=== PATIENT | female | born 1965 | race Caucasian/White ===

== ENCOUNTER → 2018-10-26 | Outpatient (CLI) | payer OTHER | END | disposition home or self-care (01) | LOC: ROC 10-19 14:54 | PROVIDERS: ATTEND Radiology Radiation Oncology | DX: C79.31 Secondary malignant neoplasm of brain (principal); C50.919 Malignant neoplasm of unspecified site of unspecified female breast; C78.7 Secondary malignant neoplasm of liver and intrahepatic bile duct | CPT/HCPCS: 99214; G0463 ==

== ENCOUNTER 2018-11-07 13:42 | Outpatient (CLI) | payer OTHER | END 2018-11-07 23:59 | disposition home or self-care (01) | LOC: CFH 13:42 | PROVIDERS: ATTEND Radiology Radiation Oncology | DX: C79.31 Secondary malignant neoplasm of brain (principal); G93.6 Cerebral edema | CPT/HCPCS: 70553; A9585; J1642 ==

== ENCOUNTER → 2019-03-01 | Outpatient (CLI) | payer OTHER ==
[~2019-03-01] MED LIST: GADOTERATE 2.5 MMOL/5 ML VIAL ONE
== END | disposition home or self-care (01) ==
LOC: CFH 08:52
PROVIDERS: ATTEND Radiology Radiation Oncology
DX: C79.31 Secondary malignant neoplasm of brain (principal)
CPT/HCPCS: 70553; A9575

== ENCOUNTER → 2019-03-02 | Outpatient (CLI) | payer OTHER | END | disposition home or self-care (01) | LOC: ROC 07:41 | PROVIDERS: ATTEND Radiology Radiation Oncology | DX: C79.31 Secondary malignant neoplasm of brain (principal); H53.2 Diplopia; G47.00 Insomnia, unspecified; R41.3 Other amnesia | CPT/HCPCS: 99213; G0463 ==

== ENCOUNTER → 2019-05-01 | Outpatient (CLI) | payer OTHER ==
[~2019-05-01] MED LIST changes: +GADOTERATE 10 MMOL/20 ML SYR ONE; -GADOTERATE 2.5 MMOL/5 ML VIAL ONE
== END | disposition home or self-care (01) ==
LOC: CFH 09:00
PROVIDERS: ATTEND Radiology Radiation Oncology
DX: Z08 Encounter for follow-up examination after completed treatment for malignant neoplasm (principal); Z85.841 Personal history of malignant neoplasm of brain
CPT/HCPCS: 70553; A9575

== ENCOUNTER → 2019-05-03 | Outpatient (CLI) | payer OTHER | END | disposition home or self-care (01) | LOC: ROC 03-02 07:43 | PROVIDERS: ATTEND Radiology Radiation Oncology | DX: C78.7 Secondary malignant neoplasm of liver and intrahepatic bile duct (principal); C79.81 Secondary malignant neoplasm of breast | CPT/HCPCS: 99213; G0463 ==

== ENCOUNTER → 2019-06-30 | Outpatient (CLI) | payer OTHER ==
[~2019-06-30] MED LIST changes: -GADOTERATE 10 MMOL/20 ML SYR ONE; +GADOTERATE 7.5 MMOL/15 ML SYR ONE
== END | disposition home or self-care (01) ==
LOC: CFH 12:49
PROVIDERS: ATTEND Radiology Radiation Oncology
DX: C79.31 Secondary malignant neoplasm of brain (principal); G93.89 Other specified disorders of brain
CPT/HCPCS: 70553; A9575

== ENCOUNTER → 2019-08-10 | Outpatient (CLI) | payer OTHER | END | disposition home or self-care (01) | LOC: CFH 12:44 → EDSTATUS 08-28 10:00 | PROVIDERS: ATTEND Radiology Radiation Oncology | DX: C79.31 Secondary malignant neoplasm of brain (principal); C50.919 Malignant neoplasm of unspecified site of unspecified female breast; G93.6 Cerebral edema | CPT/HCPCS: 70553; A9575 ==

== ENCOUNTER → 2019-10-24 | Outpatient (CLI) | payer OTHER | END | disposition home or self-care (01) | LOC: CFH 11:43 | PROVIDERS: ATTEND Radiology Radiation Oncology | DX: C79.31 Secondary malignant neoplasm of brain (principal) | CPT/HCPCS: 70553; A9575 ==

== ENCOUNTER 2019-10-27 07:28 | Outpatient (CLI) | payer OTHER | END 2019-10-27 23:59 | disposition home or self-care (01) | LOC: ROC 07:28 | PROVIDERS: ATTEND Radiology Radiation Oncology | DX: C50.912 Malignant neoplasm of unspecified site of left female breast (principal); C79.51 Secondary malignant neoplasm of bone | CPT/HCPCS: 99213; G0463 ==

== ENCOUNTER → 2019-11-17 | Outpatient (CLI) | payer OTHER ==
[~2019-11-17] MED LIST changes: -GADOTERATE 7.5 MMOL/15 ML SYR ONE; +OMNIPAQUE 350 MG/ML, 100ML BOTTLE ONE
== END | disposition home or self-care (01) ==
LOC: CFH 11:09
PROVIDERS: ATTEND Specialist
DX: C50.312 Malignant neoplasm of lower-inner quadrant of left female breast (principal); J84.10 Pulmonary fibrosis, unspecified; K76.0 Fatty (change of) liver, not elsewhere classified; M89.9 Disorder of bone, unspecified
CPT/HCPCS: 71260; 74160; Q9967

== ENCOUNTER → 2019-12-27 | Outpatient (CLI) | payer OTHER ==
[~2019-12-27] MED LIST changes: +GADOTERATE 7.5 MMOL/15 ML SYR ONE; -OMNIPAQUE 350 MG/ML, 100ML BOTTLE ONE
== END | disposition home or self-care (01) ==
LOC: CFH 09:01
PROVIDERS: ATTEND Radiology Radiation Oncology
DX: C79.31 Secondary malignant neoplasm of brain (principal); R22.0 Localized swelling, mass and lump, head
CPT/HCPCS: 70553; A9575

== ENCOUNTER → 2020-01-03 | Outpatient (CLI) | payer OTHER | END | disposition home or self-care (01) | LOC: ROC 07:05 | PROVIDERS: ATTEND Radiology Radiation Oncology | DX: C79.31 Secondary malignant neoplasm of brain (principal); C50.312 Malignant neoplasm of lower-inner quadrant of left female breast | CPT/HCPCS: 99213; G0463 ==

== ENCOUNTER → 2020-02-07 | Outpatient (CLI) | payer OTHER | END | disposition home or self-care (01) | LOC: ROC 07:27 | PROVIDERS: ATTEND Radiology Radiation Oncology | DX: C79.31 Secondary malignant neoplasm of brain (principal); C50.312 Malignant neoplasm of lower-inner quadrant of left female breast; C79.51 Secondary malignant neoplasm of bone | CPT/HCPCS: 99213; G0463 ==

== ENCOUNTER → 2020-04-24 | Outpatient (CLI) | payer OTHER | END | disposition home or self-care (01) | LOC: ROC 12:50 | PROVIDERS: ATTEND Radiology Radiation Oncology | DX: C79.31 Secondary malignant neoplasm of brain (principal); C50.312 Malignant neoplasm of lower-inner quadrant of left female breast; C79.51 Secondary malignant neoplasm of bone | CPT/HCPCS: 99213; G0463 ==

== ENCOUNTER → 2020-05-22 | Outpatient (CLI) | payer OTHER | END | disposition home or self-care (01) | LOC: CFH 13:04 | PROVIDERS: ATTEND Radiology Radiation Oncology | DX: C79.31 Secondary malignant neoplasm of brain (principal) | CPT/HCPCS: 70553; A9575 ==

== ENCOUNTER → 2020-05-23 | Outpatient (CLI) | payer OTHER ==
[~2020-05-23] MED LIST changes: +DEXAMETHASONE 4 MG TABLET ONE; -GADOTERATE 7.5 MMOL/15 ML SYR ONE
== END | disposition home or self-care (01) ==
LOC: ROC 07:50
PROVIDERS: ATTEND Radiology Radiation Oncology
DX: C79.31 Secondary malignant neoplasm of brain (principal); C79.51 Secondary malignant neoplasm of bone; C50.312 Malignant neoplasm of lower-inner quadrant of left female breast
CPT/HCPCS: 99213; G0463

== ENCOUNTER → 2020-07-03 | Outpatient (CLI) | payer OTHER ==
[~2020-07-03] MED LIST changes: -DEXAMETHASONE 4 MG TABLET ONE; +GADOTERATE 7.5 MMOL/15ML SYR ONE
== END | disposition home or self-care (01) ==
LOC: CFH 10:30
PROVIDERS: ATTEND Radiology Radiation Oncology
DX: C79.31 Secondary malignant neoplasm of brain (principal); G93.89 Other specified disorders of brain
CPT/HCPCS: 70553; A9575

== ENCOUNTER 2020-07-05 07:52 | Outpatient (CLI) | payer OTHER | END 2020-07-05 23:59 | disposition home or self-care (01) | LOC: ROC 07:52 | PROVIDERS: ATTEND Radiology Radiation Oncology | DX: C79.31 Secondary malignant neoplasm of brain (principal); C50.312 Malignant neoplasm of lower-inner quadrant of left female breast; C79.51 Secondary malignant neoplasm of bone; C78.7 Secondary malignant neoplasm of liver and intrahepatic bile duct | CPT/HCPCS: 99213; G0463 ==

== ENCOUNTER → 2020-08-21 | Outpatient (CLI) | payer OTHER | END | disposition home or self-care (01) | LOC: CFH 12:49 | PROVIDERS: ATTEND Specialist | DX: C50.312 Malignant neoplasm of lower-inner quadrant of left female breast (principal); R42 Dizziness and giddiness; G93.89 Other specified disorders of brain | CPT/HCPCS: 70553; A9575 ==

== ENCOUNTER 2020-08-23 08:01 | Outpatient (CLI) | payer OTHER | END 2020-08-23 23:59 | disposition home or self-care (01) | LOC: ROC 08:01 | PROVIDERS: ATTEND Radiology Radiation Oncology | DX: Z08 Encounter for follow-up examination after completed treatment for malignant neoplasm (principal); Z85.841 Personal history of malignant neoplasm of brain; R42 Dizziness and giddiness; Z85.3 Personal history of malignant neoplasm of breast; Z85.830 Personal history of malignant neoplasm of bone | CPT/HCPCS: 99213; G0463 ==

== ENCOUNTER 2020-10-24 16:01 | Inpatient (IN) | payer OTHER ==
[~2020-10-24] VITALS: Ht 160 cm; Wt 63.5 kg
--- NOTE | 2020-10-24 17:02 | NUR ---
THIS IS A 55 YO F W/ C/O NAUSEA, INCREASED WEAKNESS AND FATIGUE S/P NEW CHEMO TREATMENT X4 WEEKS. PT HAS HX OF BREAST CANCER W/ METASTASIS TO BRAIN. PT SLEEPING ON GURNEY W/ CALL LIGHT IN REACH AND SIDE RAILS UPX2. FAMILY AT BEDSIDE. CONNECTED TO ALL MONITORING. RESP EVEN AND UNLABORED, RITAN. AWAITING ED EVAL.
[2020-10-24 17:44] LABS: MEAN CORPUSCULAR HEMOGLOBIN 27.8 pg (27.0-34.8); MEAN CORPUSCULAR HGB CONC 33.5 g/dL (32.4-35.8); MEAN PLATELET VOLUME 6.7 fL (7.4-10.4); PLATELET COUNT 166 x10^3/uL (130-400); RED BLOOD COUNT 4.75 x10^6/uL (3.82-5.3)
[2020-10-24 17:53] LABS: INTERNATIONAL NORMALIZED RATIO 1.33 (0.93-1.1)
[2020-10-24 17:56] LABS: ALANINE AMINOTRANSFERASE 42 U/L (12-78); ALBUMIN 2.8 g/dL (3.4-5.0); ANION GAP 4 mmol/L (5-15); BILIRUBIN, DIRECT 0.3 mg/dL (0.1-0.2); CALCIUM 7.7 mg/dL (8.5-10.1); CHLORIDE 102 mmol/L (98-107)
[2020-10-24 18:00] LABS: ALKALINE PHOSPHATASE 65 U/L (45-117); BILIRUBIN,TOTAL 1.3 mg/dL (0.2-1.0); TROPONIN I < 0.015 ng/mL (0.000-0.045)
[2020-10-24] MEDS ORDERED: SODIUM CHLORIDE 0.9% 1,000ML IVBOLUS ONE (18:00)
--- NOTE | 2020-10-24 18:06 | NUR ---
PT TO CT.
[2020-10-24 18:12] LABS: <PLATELET ESTIMATE> ADEQUATE; BAND#(MANUAL) 0.46 x10^3/uL; BANDS%(MANUAL) 17 % (0-7); LYMPH#(MANUAL) 0.54 x10^3/uL (1-3.4); LYMPHS% (MANUAL) 20 % (22-44); MONOS#(MANUAL) 0.19 x10^3/uL (0.3-2.7); MONOS% (MANUAL) 7 % (2-9); SEG#(MANUAL) 1.51 x10^3/uL (1.8-6.8); SEGS% (MANUAL) 56 % (42-75); STOMATOCYTES 1+
[2020-10-24 18:13] LABS: <PLT MORPHOLOGY> NORMAL PLT MORPH
[2020-10-24] MEDS ORDERED: OMNIPAQUE 350 MG/ML, 100ML BOTTLE ONE (18:30)
--- NOTE | 2020-10-24 18:58 | NUR ---
PT TRANSFERED TO BEDSIDE COMMODE W/ ASSISTANCE FROM SPOUSE. PT NOT COOPERATING W/ CLEAN CATH URINE.
--- NOTE | 2020-10-24 19:01 | NUR ---
Report from Diane ZAMORA
[2020-10-24 19:09] LABS: MICROSCOPIC AUTO
[2020-10-24] MEDS ORDERED: CALCIUM GLUCONATE 4.6 MEQ/10 ML ONE (19:25)
[2020-10-24] MEDS ORDERED: CEFEPIME 1 GM in DEXTROSE 5% 50 ML IV ONE (19:30)
[2020-10-24] MEDS ORDERED: CALCIUM GLUCONATE 4.6 MEQ/10 ML IVPush ONE (19:30)
[2020-10-24] MEDS ORDERED: DEXA4VIA39 PO (19:51)
[2020-10-24] MEDS ORDERED: TEMA30CA PO (19:51)
--- NOTE | 2020-10-24 20:09 | NUR ---
Report to Javi ZAMORA
[2020-10-24] MEDS ORDERED: ONDANSETRON 2MG/ML, 2ML ONE (20:10)
[2020-10-24] MEDS ORDERED: MORPHINE SULFATE 4 MG/ML, 1ML ONE (20:11)
[2020-10-24] MEDS: MORPHINE SULFATE 4 MG/ML, 1ML IVPush PRN ×2 (20:15→22:38)
[2020-10-24 20:28] VITALS: BP 140/87
[2020-10-24] MEDS ORDERED: ONDANSETRON 2MG/ML, 2ML IVPush ONE (20:30)
[2020-10-24] MEDS ORDERED: PANTOPRAZOLE 40 MG IV IVPush SCH (22:00)
[2020-10-24] MEDS ORDERED: ACETAMINOPHEN 325 MG TABLET PO PRN (22:00)
[2020-10-24] MEDS ORDERED: BISACODYL 10 MG SUPP PR PRN (22:00)
[2020-10-24] MEDS ORDERED: MAALOX/HYOSCYAMINE/LIDOCAINE 45 ML BTL PO ONE (22:00)
[2020-10-24] MEDS ORDERED: LIDODERM 5% PATCH TD PRN (22:00)
[2020-10-24] MEDS ORDERED: ONDANSETRON 2MG/ML, 2ML IVPush PRN (22:00)
[2020-10-24] MEDS: TEMAZEPAM 30 MG CAPSULE PO SCH (22:30)
[2020-10-24] MEDS: SODIUM CHLORIDE 0.9% 1,000 ML IV SCH (23:17)
[2020-10-25 03:54] VITALS: BP 129/78
[2020-10-25] MEDS: SODIUM CHLORIDE 0.9% 1,000 ML IV SCH ×3 (04:30→20:00)
[2020-10-25 05:35] LABS: MEAN CORPUSCULAR HEMOGLOBIN 28.4 pg (27.0-34.8); MEAN CORPUSCULAR HGB CONC 33.3 g/dL (32.4-35.8); MEAN PLATELET VOLUME 6.6 fL (7.4-10.4); PLATELET COUNT 145 x10^3/uL (130-400); RED BLOOD COUNT 4.38 x10^6/uL (3.82-5.3); RED CELL DISTRIBUTION WIDTH 15.3 % (9.6-15.2)
[2020-10-25] MEDS: PANTOPRAZOLE 40 MG IV IVPush SCH (05:47)
[2020-10-25] MEDS: CEFEPIME 1 GM in DEXTROSE 5% 50 ML IV SCH ×2 (05:47→16:36)
[2020-10-25 06:09] LABS: ANION GAP 7 mmol/L (5-15); CALCIUM 7.1 mg/dL (8.5-10.1); CHLORIDE 107 mmol/L (98-107)
[2020-10-25 06:21] LABS: BAND#(MANUAL) 0.08 x10^3/uL; BANDS%(MANUAL) 3 % (0-7); LYMPH#(MANUAL) 0.73 x10^3/uL (1-3.4); LYMPHS% (MANUAL) 28 % (22-44); METAMYELOCYTES# (MANUAL) 0.05 x10^3/uL (0-0); METAMYELOCYTES% (MANUAL) 2 % (0-1); MONOS#(MANUAL) 0.13 x10^3/uL (0.3-2.7); MONOS% (MANUAL) 5 % (2-9); SEG#(MANUAL) 1.61 x10^3/uL (1.8-6.8); SEGS% (MANUAL) 62 % (42-75)
[2020-10-25 06:22] LABS: <PLATELET ESTIMATE> ADEQUATE; <PLT MORPHOLOGY> NORMAL PLT MORPH; ANISOCYTOSIS 1+
[2020-10-25 08:45] VITALS: BP_SYST 108; BP_SYST 134; BP_DIAS 74; BP_DIAS 83
[2020-10-25] MEDS: DEXAMETHASONE 4 MG/ML, 1ML PO SCH (09:00)
[2020-10-25] MEDS ORDERED: POTASSIUM CHLORIDE 40 MEQ in SODIUM CHLORIDE 0.9% 500 ML IV ONE (12:00)
[2020-10-25] MEDS: MAALOX/HYOSCYAMINE/LIDOCAINE 45 ML BTL PO PRN (12:17)
[2020-10-25 13:56] VITALS: BP 158/91
[2020-10-25 20:04] VITALS: BP 132/74
[2020-10-25] MEDS: TEMAZEPAM 30 MG CAPSULE PO SCH (20:39)
[2020-10-26 00:07] VITALS: BP 121/73
[2020-10-26] MEDS: CEFEPIME 1 GM in DEXTROSE 5% 50 ML IV SCH ×4 (00:09→23:50)
[2020-10-26] MEDS: SODIUM CHLORIDE 0.9% 1,000 ML IV SCH ×2 (01:43→08:24)
[2020-10-26 06:33] VITALS: BP 125/81
[2020-10-26] MEDS: DEXAMETHASONE 4 MG/ML, 1ML PO SCH (07:58)
[2020-10-26] MEDS: PANTOPRAZOLE 40 MG IV IVPush SCH (07:58)
[2020-10-26] MEDS: MAALOX/HYOSCYAMINE/LIDOCAINE 45 ML BTL PO PRN ×3 (08:24→16:04)
[2020-10-26 08:50] LABS: MEAN CORPUSCULAR HEMOGLOBIN 28.2 pg (27.0-34.8); MEAN CORPUSCULAR HGB CONC 33.4 g/dL (32.4-35.8); MEAN PLATELET VOLUME 6.6 fL (7.4-10.4); PLATELET COUNT 158 x10^3/uL (130-400); RED BLOOD COUNT 4.92 x10^6/uL (3.82-5.3); RED CELL DISTRIBUTION WIDTH 15.5 % (9.6-15.2)
[2020-10-26 09:03] LABS: ALBUMIN 2.7 g/dL (3.4-5.0)
[2020-10-26 09:06] LABS: ALANINE AMINOTRANSFERASE 39 U/L (12-78); ALKALINE PHOSPHATASE 53 U/L (45-117); CREATININE 0.28 mg/dL (0.55-1.02); TOTAL PROTEIN 4.8 g/dL (6.4-8.2)
[2020-10-26 09:07] LABS: ANION GAP 4 mmol/L (5-15); CALCIUM 6.7 mg/dL (8.5-10.1); CHLORIDE 108 mmol/L (98-107)
[2020-10-26 09:28] LABS: BAND#(MANUAL) 0.34 x10^3/uL; BANDS%(MANUAL) 6 % (0-7); REACTIVE LYMPHS # (MANUAL) 0.06 x10^3/uL (0-0); REACTIVE LYMPHS % (MANUAL) 1 % (0-0)
[2020-10-26 09:29] LABS: <PLATELET ESTIMATE> DECREASED; <PLT MORPHOLOGY> NORMAL PLT MORPH; LYMPH#(MANUAL) 2.35 x10^3/uL (1-3.4); LYMPHS% (MANUAL) 42 % (22-44); MONOS#(MANUAL) 0.34 x10^3/uL (0.3-2.7); MONOS% (MANUAL) 6 % (2-9); SEG#(MANUAL) 2.52 x10^3/uL (1.8-6.8); SEGS% (MANUAL) 45 % (42-75)
[2020-10-26 09:30] LABS: ANISOCYTOSIS 1+; POLYCHROMASIA 1+
[2020-10-26] MEDS ORDERED: CALCIUM GLUCONATE 4.6 MEQ in SODIUM CHLORIDE 0.9% 100 ML IV ONE (11:30)
[2020-10-26] MEDS ORDERED: POTASSIUM CHLORIDE 20 MEQ in SODIUM CHLORIDE 0.9% 250 ML IV ONE (11:30)
[2020-10-26] MEDS ORDERED: CYANOCOBALAMIN 1,000 MCG/ML, 1ML IM ONE (11:30)
[2020-10-26] MEDS: MULTIVITS,STRESS FORMULA 1 TABLET PO SCH (12:06)
[2020-10-26] MEDS: ZINC SULFATE 220 MG CAPSULE PO SCH (12:06)
[2020-10-26] MEDS: CHOLECALCIFEROL 5,000u TAB PO SCH (12:06)
[2020-10-26 13:02] VITALS: BP 133/79
[2020-10-26 14:17] LABS: CLOSTRIDIUM DIFFICILE ANTIGEN POSITIVE; CLOSTRIDIUM DIFFICILE TOXIN NEGATIVE (Negative)
[2020-10-26] MEDS: VANCOMYCIN 50 MG/ML ORAL SUSP PO SCH ×2 (16:03→21:22)
[2020-10-26] MEDS: ASCORBIC ACID 500 MG TABLET PO SCH (16:03)
[2020-10-26] MEDS: POTASSIUM CHLORIDE 20 MEQ in LACTATED RINGERS 1,000 ML IV SCH (16:04)
[2020-10-26 18:55] VITALS: BP 133/87
[2020-10-26] MEDS: TEMAZEPAM 30 MG CAPSULE PO SCH (21:22)
[2020-10-27 00:01] VITALS: BP 133/94
[2020-10-27] MEDS: POTASSIUM CHLORIDE 20 MEQ in LACTATED RINGERS 1,000 ML IV SCH (03:26)
[2020-10-27] MEDS: VANCOMYCIN 50 MG/ML ORAL SUSP PO SCH ×4 (03:36→21:13)
[2020-10-27 05:15] LABS: MEAN CORPUSCULAR HEMOGLOBIN 28.4 pg (27.0-34.8); MEAN PLATELET VOLUME 6.6 fL (7.4-10.4); PLATELET COUNT 201 x10^3/uL (130-400); RED BLOOD COUNT 4.92 x10^6/uL (3.82-5.3); RED CELL DISTRIBUTION WIDTH 15.1 % (9.6-15.2)
[2020-10-27 05:30] LABS: ALBUMIN 2.9 g/dL (3.4-5.0); ANION GAP 4 mmol/L (5-15); CALCIUM 7.5 mg/dL (8.5-10.1); CHLORIDE 104 mmol/L (98-107); CREATININE 0.45 mg/dL (0.55-1.02)
[2020-10-27 05:55] LABS: <PLATELET ESTIMATE> DECREASED; <PLT MORPHOLOGY> NORMAL PLT MORPH; ANISOCYTOSIS 1+; BAND#(MANUAL) 0.58 x10^3/uL; BANDS%(MANUAL) 8 % (0-7); LYMPH#(MANUAL) 2.09 x10^3/uL (1-3.4); LYMPHS% (MANUAL) 29 % (22-44); METAMYELOCYTES# (MANUAL) 0.14 x10^3/uL (0-0); METAMYELOCYTES% (MANUAL) 2 % (0-1); MONOS% (MANUAL) 7 % (2-9); MYELOCYTES# (MANUAL) 0.14 x10^3/uL (0-0); MYELOCYTES% (MANUAL) 2 % (0-0); POLYCHROMASIA 1+; SEG#(MANUAL) 3.74 x10^3/uL (1.8-6.8); SEGS% (MANUAL) 52 % (42-75)
[2020-10-27 05:56] LABS: TOXIC GRAN 1+
[2020-10-27 07:15] VITALS: BP 123/79
[2020-10-27] MEDS: MULTIVITS,STRESS FORMULA 1 TABLET PO SCH (08:32)
[2020-10-27] MEDS: DEXAMETHASONE 4 MG/ML, 1ML PO SCH (08:32)
[2020-10-27] MEDS: CEFEPIME 1 GM in DEXTROSE 5% 50 ML IV SCH (08:32)
[2020-10-27] MEDS: ASCORBIC ACID 500 MG TABLET PO SCH ×2 (08:32→16:22)
[2020-10-27] MEDS: CHOLECALCIFEROL 5,000u TAB PO SCH (08:32)
[2020-10-27] MEDS: PANTOPRAZOLE 40 MG IV IVPush SCH (08:32)
[2020-10-27] MEDS: ZINC SULFATE 220 MG CAPSULE PO SCH (08:32)
[2020-10-27] MEDS ORDERED: ACETAMINOPHEN 325 MG TABLET PO PRN (09:30)
[2020-10-27] MEDS ORDERED: POTASSIUM CHLORIDE 20 MEQ TAB.ER.PRT PO ONE (09:30)
[2020-10-27] MEDS: SODIUM CHLORIDE 0.9% 1,000 ML IV SCH (10:26)
[2020-10-27 13:30] VITALS: BP 122/79
[2020-10-27] MEDS ORDERED: POTASSIUM PHOSPHATE 44 MEQ in SODIUM CHLORIDE 0.9% 500 ML IV ONE (16:00)
[2020-10-27] MEDS: LACTOBACILLUS CHEW TABLET PO SCH ×2 (16:21→21:11)
[2020-10-27 19:37] VITALS: BP_SYST 115; BP_SYST 135; BP_DIAS 72; BP_DIAS 84
[2020-10-27] MEDS: CALCIUM CARBONATE 500 MG TABLET PO SCH (21:00)
[2020-10-28 02:12] VITALS: BP 124/76
[2020-10-28] MEDS: SODIUM CHLORIDE 0.9% 1,000 ML IV SCH ×2 (03:01→17:10)
[2020-10-28] MEDS: VANCOMYCIN 50 MG/ML ORAL SUSP PO SCH ×4 (03:38→21:58)
[2020-10-28 05:03] LABS: ANION GAP 5 mmol/L (5-15); CALCIUM 7.2 mg/dL (8.5-10.1); CHLORIDE 109 mmol/L (98-107); CREATININE 0.22 mg/dL (0.55-1.02)
[2020-10-28 07:30] VITALS: BP 124/74
[2020-10-28] MEDS: MULTIVITS,STRESS FORMULA 1 TABLET PO SCH (09:24)
[2020-10-28] MEDS: CHOLECALCIFEROL 5,000u TAB PO SCH (09:24)
[2020-10-28] MEDS: ZINC SULFATE 220 MG CAPSULE PO SCH (09:24)
[2020-10-28] MEDS: ASCORBIC ACID 500 MG TABLET PO SCH ×2 (09:24→17:10)
[2020-10-28] MEDS: CALCIUM CARBONATE 500 MG TABLET PO SCH ×2 (09:24→21:55)
[2020-10-28] MEDS: LACTOBACILLUS CHEW TABLET PO SCH ×3 (09:24→21:56)
[2020-10-28] MEDS: DEXAMETHASONE 4 MG TABLET PO SCH (09:25)
[2020-10-28] MEDS: ENOXAPARIN 40 MG/0.4 ML SQ SCH (09:25)
[2020-10-28 13:55] VITALS: BP 133/78
[2020-10-28 19:07] VITALS: BP 135/80
[2020-10-29 01:12] VITALS: BP 141/89
[2020-10-29] MEDS: VANCOMYCIN 50 MG/ML ORAL SUSP PO SCH ×3 (04:31→17:00)
[2020-10-29 08:12] VITALS: BP 136/82
[2020-10-29] MEDS: CHOLECALCIFEROL 5,000u TAB PO SCH (08:26)
[2020-10-29] MEDS: CALCIUM CARBONATE 500 MG TABLET PO SCH (08:26)
[2020-10-29] MEDS: ASCORBIC ACID 500 MG TABLET PO SCH ×2 (08:26→16:25)
[2020-10-29] MEDS: MULTIVITS,STRESS FORMULA 1 TABLET PO SCH (08:26)
[2020-10-29] MEDS: ZINC SULFATE 220 MG CAPSULE PO SCH (08:26)
[2020-10-29] MEDS: ENOXAPARIN 40 MG/0.4 ML SQ SCH (08:27)
[2020-10-29] MEDS: DEXAMETHASONE 4 MG TABLET PO SCH (08:27)
[2020-10-29] MEDS: LACTOBACILLUS CHEW TABLET PO SCH ×2 (08:27→16:00)
[2020-10-29] MEDS ORDERED: SODIUM CHLORIDE 0.9% 1,000 ML IV SCH (09:30)
[2020-10-29] MEDS: CARVEDILOL 3.125 MG TABLET PO SCH ×2 (10:02→16:25)
[2020-10-29] MEDS ORDERED: Calcium Carbonate PO (10:43)
[2020-10-29] MEDS ORDERED: CHOL500045 PO (10:43)
[2020-10-29] MEDS ORDERED: CARV3.1212 PO (10:43)
[2020-10-29] MEDS ORDERED: ACID1TAB7 PO (10:43)
[2020-10-29] MEDS ORDERED: VANC1VIA36 PO (10:46)
[2020-10-29 13:30] VITALS: BP 132/68
== END 2020-10-29 17:27 | disposition home health service (06) | DRG 372 ==
LOC: ED 19:20 → EDIP 19:27 → ED 19:47 → 4NW 20:40
PROVIDERS: ADMIT Internal Medicine; ATTEND Internal Medicine
DX: A04.72 Enterocolitis due to Clostridium difficile, not specified as recurrent (principal); N39.0 Urinary tract infection, site not specified; C79.31 Secondary malignant neoplasm of brain; C79.51 Secondary malignant neoplasm of bone; C50.919 Malignant neoplasm of unspecified site of unspecified female breast; E83.51 Hypocalcemia; D70.1 Agranulocytosis secondary to cancer chemotherapy; E83.39 Other disorders of phosphorus metabolism; E87.6 Hypokalemia; I10 Essential (primary) hypertension; K20.80 Other esophagitis without bleeding; Y84.2 Radiological procedure and radiotherapy as the cause of abnormal reaction of the patient, or of later complication, without mention of misadventure at the time of the procedure; Z66 Do not resuscitate; Z99.3 Dependence on wheelchair; Z79.899 Other long term (current) drug therapy; Z92.21 Personal history of antineoplastic chemotherapy; Z88.0 Allergy status to penicillin
CPT/HCPCS: 36415; 36600; 96374; 96375; 99285; J3370; 70450; 71045; 74177; 80048; 80053; 80069; 81001; 82140; 82248; 82330; 82803; 82962; 83605; 83735; 84100; 84443; 84484; 85025; 85610; 87040; 87086; 87324; 87493; 93005; G0378; J0610; J0692; J1100; J1650; J2405; J3480; Q9967; C9113; J2270; J3420; J7030; J7040; J7050; J7120

== ENCOUNTER 2020-11-13 13:26 | Inpatient (IN) | payer OTHER ==
[~2020-11-13] VITALS: Ht 154.9 cm; Wt 62.0 kg
[~2020-11-13 13:26] MED LIST changes: +ACID1TAB7 PO; +CARV3.1212 PO; +CHOL500045 PO; +Calcium Carbonate PO; +DEXA4VIA39 PO; -GADOTERATE 7.5 MMOL/15ML SYR ONE; +TEMA30CA PO; +VANC1VIA36 PO
--- NOTE | 2020-11-13 13:56 | NUR ---
Bib by [facility] for AMS Since walking this am. vss/fsbs 130 Stage 4 breast cancer (liver/hip/brain) Received call from [facility] yesterday for abnormal liver function tests-told to stop taking chemo (Tukysa 150mg)-last dose wednesday at 0800am Listless, follows commands but wont open eyes recently hospitalized with cdiff/uti not jaundiced
--- NOTE | 2020-11-13 15:14 | NUR ---
back from CT and U/S at bedside
[2020-11-13 15:15] LABS: ALBUMIN 2.7 g/dL (3.4-5.0); ANION GAP 6 mmol/L (5-15); CALCIUM 8.2 mg/dL (8.5-10.1); CHLORIDE 109 mmol/L (98-107)
[2020-11-13 15:18] LABS: MEAN CORPUSCULAR HEMOGLOBIN 29.6 pg (27.0-34.8); MEAN CORPUSCULAR HGB CONC 33.1 g/dL (32.4-35.8); MEAN PLATELET VOLUME 8.1 fL (7.4-10.4); PLATELET COUNT 142 x10^3/uL (130-400); RED BLOOD COUNT 5.29 x10^6/uL (3.82-5.3); RED CELL DISTRIBUTION WIDTH 27.1 % (9.6-15.2)
[2020-11-13 15:21] LABS: ALANINE AMINOTRANSFERASE 660 U/L (12-78); ALKALINE PHOSPHATASE 103 U/L (45-117); CREATININE 0.78 mg/dL (0.55-1.02); TOTAL PROTEIN 5.6 g/dL (6.4-8.2)
[2020-11-13 15:24] LABS: MICROSCOPIC AUTO
[2020-11-13] MEDS ORDERED: POTA10CA PO (15:33)
[2020-11-13] MEDS ORDERED: TUCA150T PO (15:33)
[2020-11-13 15:44] LABS: INTERNATIONAL NORMALIZED RATIO 1.18 (0.93-1.1); PROTHROMBIN TIME 12.5 Seconds (9.6-11.5)
[2020-11-13 16:06] LABS: BAND#(MANUAL) 0.86 x10^3/uL; BANDS%(MANUAL) 4 % (0-7); LYMPH#(MANUAL) 0.65 x10^3/uL (1-3.4); LYMPHS% (MANUAL) 3 % (22-44); MONOS#(MANUAL) 1.94 x10^3/uL (0.3-2.7); MONOS% (MANUAL) 9 % (2-9); SEG#(MANUAL) 18.14 x10^3/uL (1.8-6.8); SEGS% (MANUAL) 84 % (42-75)
[2020-11-13 16:08] LABS: ANISOCYTOSIS 1+; POLYCHROMASIA 1+; TOXIC GRAN 1+
[2020-11-13 16:09] LABS: <PLATELET ESTIMATE> DECREASED; <PLT MORPHOLOGY> NORMAL PLT MORPH
[2020-11-13] MEDS ORDERED: CEFTRIAXONE 1,000 MG in DEXTROSE 5% 50 ML IVPB ONE ×2 (16:30→18:30)
--- NOTE | 2020-11-13 16:52 | NUR ---
[facility] JESSICA AT BEDSIDE FOR EVAL
[2020-11-13] MEDS ORDERED: ONDANSETRON ODT 4 MG PO PRN (17:00)
[2020-11-13] MEDS ORDERED: ONDANSETRON 2MG/ML, 2ML IVPush PRN (17:00)
[2020-11-13] MEDS ORDERED: SODIUM CHLORIDE 0.9% 1,000ML IVBOLUS ONE (17:30)
[2020-11-13] MEDS ORDERED: CEFTRIAXONE 1,000 MG IVPB ONE (17:30)
[2020-11-13] MEDS ORDERED: GADOTERATE 7.5 MMOL/15ML SYR ONE (17:34)
[2020-11-13] MEDS: CARVEDILOL 3.125 MG TABLET PO SCH (18:00)
[2020-11-13] MEDS: DEXAMETHASONE 4 MG/ML, 1ML IVPush SCH (18:45)
[2020-11-13 19:43] VITALS: BP 137/91
[2020-11-13] MEDS: CEFTRIAXONE 2 GM in DEXTROSE 5% 50 ML IVPB SCH (21:20)
[2020-11-13] MEDS: SODIUM CHLORIDE 0.9% 1,000 ML IV SCH (21:20)
[2020-11-14 00:07] VITALS: BP 136/85
[2020-11-14 05:01] LABS: MEAN CORPUSCULAR HEMOGLOBIN 29.8 pg (27.0-34.8); MEAN CORPUSCULAR HGB CONC 33.3 g/dL (32.4-35.8); PLATELET COUNT 119 x10^3/uL (130-400); RED BLOOD COUNT 4.59 x10^6/uL (3.82-5.3); RED CELL DISTRIBUTION WIDTH 26.6 % (9.6-15.2)
[2020-11-14 05:12] LABS: CHLORIDE 112 mmol/L (98-107)
[2020-11-14 05:22] LABS: ANION GAP 6 mmol/L (5-15); CALCIUM 6.8 mg/dL (8.5-10.1); CREATININE 0.47 mg/dL (0.55-1.02)
[2020-11-14 05:46] LABS: <PLATELET ESTIMATE> DECREASED; <PLT MORPHOLOGY> NORMAL PLT MORPH; ANISOCYTOSIS 1+; BAND#(MANUAL) 0.28 x10^3/uL; BANDS%(MANUAL) 2 % (0-7); LYMPH#(MANUAL) 0.14 x10^3/uL (1-3.4); LYMPHS% (MANUAL) 1 % (22-44); METAMYELOCYTES# (MANUAL) 0.28 x10^3/uL (0-0); METAMYELOCYTES% (MANUAL) 2 % (0-1); MONOS#(MANUAL) 0.55 x10^3/uL (0.3-2.7); MONOS% (MANUAL) 4 % (2-9); MYELOCYTES# (MANUAL) 0.14 x10^3/uL (0-0); MYELOCYTES% (MANUAL) 1 % (0-0); POLYCHROMASIA 1+; SEG#(MANUAL) 12.42 x10^3/uL (1.8-6.8); SEGS% (MANUAL) 90 % (42-75)
[2020-11-14] MEDS: CARVEDILOL 3.125 MG TABLET PO SCH ×2 (06:01→17:20)
[2020-11-14] MEDS: SODIUM CHLORIDE 0.9% 1,000 ML IV SCH ×3 (06:01→20:42)
[2020-11-14 07:49] VITALS: BP 146/84
[2020-11-14 08:01] LABS: ALBUMIN 2.2 g/dL (3.4-5.0)
[2020-11-14 08:06] LABS: BILIRUBIN, DIRECT 0.2 mg/dL (0.1-0.2); BILIRUBIN,TOTAL 1.2 mg/dL (0.2-1.0); TOTAL PROTEIN 4.6 g/dL (6.4-8.2)
[2020-11-14] MEDS: DEXAMETHASONE 4 MG/ML, 1ML IVPush SCH (09:12)
[2020-11-14] MEDS ORDERED: CALCIUM GLUCONATE 4.6 MEQ/10 ML IVPush ONE (10:00)
[2020-11-14] MEDS ORDERED: CALCIUM GLUCONATE 4.6 MEQ in SODIUM CHLORIDE 0.9% 100 ML IV ONE (10:30)
[2020-11-14 12:25] VITALS: BP 161/72
[2020-11-14 12:39] VITALS: BP 144/81
[2020-11-14] MEDS ORDERED: ENOXAPARIN 40 MG/0.4 ML SQ SCH (17:00)
[2020-11-14] MEDS ORDERED: CEFTRIAXONE 2 GM in DEXTROSE 5% 50 ML IVPB SCH (17:30)
[2020-11-14 18:56] VITALS: BP 146/76
[2020-11-14] MEDS: CEFTRIAXONE 2 GM in DEXTROSE 5% 50 ML IVPB SCH (20:41)
[2020-11-15 00:15] VITALS: BP 136/76
[2020-11-15] MEDS: SODIUM CHLORIDE 0.9% 1,000 ML IV SCH ×2 (05:35→13:00)
[2020-11-15] MEDS: CARVEDILOL 3.125 MG TABLET PO SCH (05:35)
[2020-11-15 06:14] LABS: MEAN CORPUSCULAR HEMOGLOBIN 30.1 pg (27.0-34.8); MEAN CORPUSCULAR HGB CONC 33.5 g/dL (32.4-35.8); PLATELET COUNT 107 x10^3/uL (130-400); RED BLOOD COUNT 4.12 x10^6/uL (3.82-5.3)
[2020-11-15 06:18] LABS: ANION GAP 6 mmol/L (5-15); CALCIUM 6.7 mg/dL (8.5-10.1); CHLORIDE 111 mmol/L (98-107)
[2020-11-15 06:21] LABS: ALANINE AMINOTRANSFERASE 437 U/L (12-78); ALKALINE PHOSPHATASE 63 U/L (45-117); BILIRUBIN,TOTAL 0.9 mg/dL (0.2-1.0); CREATININE 0.27 mg/dL (0.55-1.02); TOTAL PROTEIN 4.4 g/dL (6.4-8.2)
[2020-11-15 06:32] VITALS: BP 117/74
[2020-11-15 06:52] LABS: <PLATELET ESTIMATE> DECREASED; <PLT MORPHOLOGY> NORMAL PLT MORPH; ANISOCYTOSIS 1+; BAND#(MANUAL) 0.94 x10^3/uL; BANDS%(MANUAL) 8 % (0-7); LYMPH#(MANUAL) 0.35 x10^3/uL (1-3.4); LYMPHS% (MANUAL) 3 % (22-44); METAMYELOCYTES# (MANUAL) 0.24 x10^3/uL (0-0); METAMYELOCYTES% (MANUAL) 2 % (0-1); MONOS#(MANUAL) 1.06 x10^3/uL (0.3-2.7); MONOS% (MANUAL) 9 % (2-9); POLYCHROMASIA 1+; SEGS% (MANUAL) 78 % (42-75); TEAR DROPS 1+
[2020-11-15] MEDS: DEXAMETHASONE 4 MG/ML, 1ML IVPush SCH (07:38)
[2020-11-15] MEDS ORDERED: CIPR250T27 PO (13:30)
[2020-11-15 13:34] VITALS: BP 136/76
== END 2020-11-15 14:30 | disposition home or self-care (01) | DRG 871 ==
LOC: ED 13:45 → SUATTDRO 16:24 → 4NW 17:55 → ED 18:02 → 4NW 18:03
PROVIDERS: ADMIT Internal Medicine; ATTEND Family Medicine
PROC: 0T9B70Z Drainage of Bladder with Drainage Device, Via Natural or Artificial Opening (ICD-10-PCS; principal; 2020-11-13)
DX: A41.9 Sepsis, unspecified organism (principal); G93.41 Metabolic encephalopathy; N39.0 Urinary tract infection, site not specified; Z88.0 Allergy status to penicillin; E83.51 Hypocalcemia; Z85.3 Personal history of malignant neoplasm of breast; Z86.19 Personal history of other infectious and parasitic diseases
CPT/HCPCS: 36415; 70450; 70553; 71045; 76700; 80047; 80048; 80053; 80076; 81001; 82140; 83605; 83690; 83735; 85025; 85610; 87040; 87077; 87086; 87186; 93005; G0378; J0610; J0696; J1100; J1650; A9575; J7030

== ENCOUNTER 2020-12-25 15:23 | Outpatient (CLI) | payer OTHER ==
[~2020-12-25 15:23] MED LIST changes: +CIPR250T27 PO; +POTA10CA PO; +TUCA150T PO
== END 2020-12-25 23:59 | disposition home or self-care (01) ==
LOC: CFH 15:23
PROVIDERS: ATTEND Specialist
DX: C50.312 Malignant neoplasm of lower-inner quadrant of left female breast (principal); I82.413 Acute embolism and thrombosis of femoral vein, bilateral; R22.41 Localized swelling, mass and lump, right lower limb
CPT/HCPCS: 93970

== ENCOUNTER 2020-12-25 17:07 | Emergency (ER) | payer OTHER ==
[~2020-12-25] VITALS: Ht 154.9 cm; Wt 64.5 kg
[2020-12-25 18:10] LABS: BASOPHILS % (AUTO) 1 % (0-1); EOSINOPHILS % (AUTO) 2 % (1-7); LYMPHOCYTES % (AUTO) 25 % (22-44); MEAN CORPUSCULAR HEMOGLOBIN 30.9 pg (27.0-34.8); MEAN CORPUSCULAR HGB CONC 32.2 g/dL (32.4-35.8); MEAN PLATELET VOLUME 7.1 fL (7.4-10.4); MONOCYTES % (AUTO) 8 % (2-9); NEUTROPHILS % (AUTO) 64 % (42-75); PLATELET COUNT 395 x10^3/uL (130-400); RED BLOOD COUNT 3.55 x10^6/uL (3.82-5.3); RED CELL DISTRIBUTION WIDTH 19.5 % (9.6-15.2)
[2020-12-25 18:22] LABS: ALANINE AMINOTRANSFERASE 190 U/L (12-78); ALBUMIN 2.2 g/dL (3.4-5.0); ANION GAP 4 mmol/L (5-15); CALCIUM 8.6 mg/dL (8.5-10.1); CHLORIDE 110 mmol/L (98-107)
[2020-12-25 18:25] LABS: ALKALINE PHOSPHATASE 350 U/L (45-117); BILIRUBIN,TOTAL 0.5 mg/dL (0.2-1.0); TOTAL PROTEIN 6.3 g/dL (6.4-8.2)
[2020-12-25 18:26] LABS: INTERNATIONAL NORMALIZED RATIO 1.02 (0.93-1.1); PROTHROMBIN TIME 10.9 Seconds (9.6-11.5)
[2020-12-25] MEDS ORDERED: ENOXAPARIN 60 MG/0.6 ML SQ ONE (18:30)
[2020-12-25] MEDS ORDERED: ENOXAPARIN 60 MG/0.6 ML ONE (19:05)
--- NOTE | 2020-12-25 19:07 | NUR ---
med requested from pharmacy
[2020-12-25 19:24] VITALS: BP 116/50
[2020-12-25] MEDS ORDERED: RIVAROXABAN 15 MG TABLET PO ONE (19:30)
== END 2020-12-25 19:38 | disposition home or self-care (01) ==
LOC: ED 19:30
DX: I82.413 Acute embolism and thrombosis of femoral vein, bilateral (principal); I82.433 Acute embolism and thrombosis of popliteal vein, bilateral; Z85.3 Personal history of malignant neoplasm of breast
CPT/HCPCS: 36415; 80053; 85025; 85610; 85730; 96372; 99283; J1650

== ENCOUNTER 2021-01-02 14:57 | Emergency (ER) | payer OTHER ==
[~2021-01-02] VITALS: Ht 154.9 cm; Wt 62.0 kg
[2021-01-02 15:34] VITALS: BP 153/87
--- NOTE | 2021-01-02 15:37 | NUR ---
PT ASSISTED TO BAM FROM WHEELCHAIR. PT CONNECTED TO ALL MONITORS. PROVIDED BLANKET.
== END 2021-01-02 17:20 | disposition home or self-care (01) ==
LOC: ED 15:10
DX: S09.90XA Unspecified injury of head, initial encounter (principal); R55 Syncope and collapse; R11.2 Nausea with vomiting, unspecified; R00.0 Tachycardia, unspecified; Z85.3 Personal history of malignant neoplasm of breast; Z88.0 Allergy status to penicillin; Z88.1 Allergy status to other antibiotic agents; W22.8XXA Striking against or struck by other objects, initial encounter; Y93.89 Activity, other specified; Y92.89 Other specified places as the place of occurrence of the external cause; Y99.8 Other external cause status
CPT/HCPCS: 70450; 93005; 99284

== ENCOUNTER 2021-01-16 07:22 | Outpatient (CLI) | payer OTHER | END 2021-01-16 23:59 | disposition home or self-care (01) | LOC: ROC 07:22 | PROVIDERS: ATTEND Radiology Radiation Oncology | DX: Z08 Encounter for follow-up examination after completed treatment for malignant neoplasm (principal); Z85.841 Personal history of malignant neoplasm of brain; R11.2 Nausea with vomiting, unspecified; R55 Syncope and collapse; Z85.3 Personal history of malignant neoplasm of breast ==